=== PATIENT | male | born 1970 | race Caucasian/White ===

== ENCOUNTER 2017-12-30 06:14 | Emergency (ER) | payer OTHER ==
[~2017-12-30] VITALS: Ht 175.3 cm; Wt 77.4 kg
[2017-12-30] MEDS ORDERED: IBUPROFEN200 M1 PO (07:08)
[2017-12-30] MEDS ORDERED: PEPCID20 MG PO (10:51)
[2017-12-30] MEDS ORDERED: EPIPEN ADU0.3 MG/0.3 IM (10:51)
[2017-12-30] MEDS ORDERED: BENADRYL25 MG PO (10:51)
[2017-12-30] MEDS ORDERED: PREDNISONE20 MG PO (10:51)
[2017-12-30 11:15] VITALS: BP 127/82
== END 2017-12-30 11:17 | disposition home or self-care (01) ==
LOC: EME 06:14
DX: T65.891A Toxic effect of other specified substances, accidental (unintentional), initial encounter (principal); L23.5 Allergic contact dermatitis due to other chemical products; R06.00 Dyspnea, unspecified; R07.89 Other chest pain; B20 Human immunodeficiency virus [HIV] disease; F17.200 Nicotine dependence, unspecified, uncomplicated
CPT/HCPCS: 93005; 99281; 99285; J1100; J1200; S0028